=== PATIENT | female | born 1935 | race African-American/Black ===

== ENCOUNTER 2017-08-13 00:33 | Inpatient (IN) | payer MEDICARE, MEDICAID ==
[2017-08-13] VITALS (10 sets, daily range): BP systolic 91–175; BP diastolic 50–111
[~2017-08-13] VITALS: Ht 162.6 cm; Wt 72.1 kg
[~2017-08-13 00:33] MED LIST: ALBU2.5V13 NEB; AMLO5TAB88 PO; ASPI-1158 PO; ASPI-1159 PO; BUDE6HFA INH; COR12 PO; COR3 PO; FURO40TA5 PO; Isosorb Dinit/Hydralazine Hcl PO; NITR0.4T49 SL; NITR1OIN TD; P20 PO; Potassium Chloride PO; TIOT18CA3 INH
[2017-08-13] MEDS ORDERED: METHYLPREDNISOLONE SOD SUCC 125 MG/2 ML VIAL IV STA (00:48)
[2017-08-13] MEDS ORDERED: ALBUTEROL (0.083%) 2.5MG/3ML NEB HHN STA (00:48)
[2017-08-13] MEDS ORDERED: IPRATROPIUM BROMIDE (0.02%) 0.5MG/2.5ML NEB HHN STA (00:48)
[2017-08-13] MEDS ORDERED: MAGNESIUM 2 G PREMIX 50 ML IV ONE (01:00)
[2017-08-13] MEDS ORDERED: ASPIRIN 81MG TABLET PO ONE (01:00)
[2017-08-13] MEDS ORDERED: NITROGLYCERIN OINT 1GM/INCH UDPKT TD ONE (01:00)
[2017-08-13 01:15] LABS: BG BASE EXCESS 2.3 mmol/L (-2.0-2.0); BG BILEVEL POS AIRWAY PRESSURE 15/5; BG CARBOXYHEMOGLOBIN 0.3 % (0.5-1.5); BG DEOXYHEMOGLOBIN 2.3 % (0.0-5.0); BG FRACTION INSPIRED OXYGEN 28; BG HCO3 ACT 24.9 mmol/L (22.0-26.0); BG METHEMOGLOBIN 0.2 % (0.0-1.5); BG OXYGEN SATURATION 97.7 % (92.0-98.5); BG OXYHEMOGLOBIN 97.2 % (94.0-97.0); BG PH 7.509 (7.350-7.450); BG PO2 100.8 mmHg (75.0-100.0); BG SAMPLE SITE RIGHT BRACHIAL; BG TOTAL HEMOGLOBIN 11.6 g/dL (12.0-18.0); BG VENT MODE MASK - BIPAP; BG VENT RATE 14 set
[2017-08-13 01:23] LABS: BASOPHILS % 0.4 % (0.0-2.0); EOSINOPHILS % 1.3 % (0.0-5.0); HEMATOCRIT. 31.7 % (36.0-48.0); HEMOGLOBIN. 10.6 g/dL (12.0-16.0); LYMPHOCYTES % 8.7 % (20.0-50.0); MEAN CORPUSCULAR HEMOGLOBIN 31.4 pg (28.0-32.0); MEAN CORPUSCULAR VOLUME 93.9 fL (81.0-99.0); MEAN PLATELET VOLUME 10.1 fl (7.4-10.4); NEUTROPHILS % 82.6 % (40.0-76.0); PLATELET 128 x1000/uL (130-400); RED BLOOD CELL COUNT 3.37 mill/uL (4.2-5.4); RED CELL DISTRIBUTION WIDTH 17.5 % (11.6-14.6)
[2017-08-13 01:32] LABS: D-DIMER 0.76 mg/L FEU (<0.50); INR 1.1; PARTIAL THROMBOPLASTIN TIME 28.9 sec (23.4-31.0); PROTHROMBIN TIME 11.7 sec (9.4-11.6)
[2017-08-13 01:39] LABS: CARBON DIOXIDE 29 mEq/L (21-32); CHLORIDE 95 mEq/L (98-107); ETHANOL BLOOD < 10 mg/dL; TROPONIN I 0.04 ng/mL (0.00-0.04)
[2017-08-13] MEDS ORDERED: SODIUM CHLORIDE 0.9% 1,000 ML IV ONE (02:11)
[2017-08-13] MEDS ORDERED: LEVOFLOXACIN 750MG PREMIX 150 ML IV ONE (02:30)
[2017-08-13] MEDS ORDERED: CLONIDINE 0.1MG TABLET PO PRN (05:30)
[2017-08-13] MEDS ORDERED: IPRATROPIUM/ALBUTEROL 0.5-3(2.5)MG/3ML NEB HHN PRN (05:30)
[2017-08-13] MEDS ORDERED: ONDANSETRON HCL 4MG/2ML VIAL IV PRN (05:30)
[2017-08-13] MEDS: IPRATROPIUM/ALBUTEROL 0.5-3(2.5)MG/3ML NEB HHN SCH ×4 (08:29→20:57)
[2017-08-13] MEDS: ENOXAPARIN 40MG/0.4ML SYR SUBCUT SCH (08:38)
[2017-08-13] MEDS: CARVEDILOL 12.5MG TABLET PO SCH ×2 (08:38→21:15)
[2017-08-13] MEDS: METHYLPREDNISOLONE SOD SUCC 125 MG/2 ML VIAL IV SCH ×3 (08:38→23:57)
[2017-08-13] MEDS: ASPIRIN 81MG TABLET PO SCH (08:39)
[2017-08-13] MEDS: AMLODIPINE 5MG TABLET PO SCH (08:39)
[2017-08-13] MEDS: POTASSIUM CHLORIDE 20MEQ TABLET SR PO SCH (08:39)
[2017-08-13] MEDS: FUROSEMIDE 40MG/4ML VIAL IVP SCH (08:40)
[2017-08-13] MEDS: ISOSORB DINIT/HYDRALAZINE HCL 20/37.5MG TABLET PO SCH ×2 (08:40→21:15)
[2017-08-13] MEDS ORDERED: LEVOFLOXACIN 500MG PREMIX 100 ML IV SCH (15:00)
[2017-08-13] MEDS ORDERED: SODIUM CHLORIDE 0.9% 10ML VIAL ONE (15:09)
[2017-08-13] MEDS ORDERED: IOHEXOL-350 100 ML BOTTLE ONE (15:09)
[2017-08-13 15:52] LABS: HEMATOCRIT. 31.5 % (36.0-48.0); HEMOGLOBIN. 10.6 g/dL (12.0-16.0); MEAN CORPUSCULAR HEMOGLOBIN 31.6 pg (28.0-32.0); MEAN CORPUSCULAR VOLUME 94.1 fL (81.0-99.0); MEAN PLATELET VOLUME 10.9 fl (7.4-10.4); PLATELET 137 x1000/uL (130-400); RED BLOOD CELL COUNT 3.35 mill/uL (4.2-5.4); RED CELL DISTRIBUTION WIDTH 17.1 % (11.6-14.6)
[2017-08-13] MEDS ORDERED: LACTULOSE 20G/30ML UDC PO NR (17:00)
[2017-08-14] VITALS (9 sets, daily range): BP systolic 133–200; BP diastolic 70–105
[2017-08-14] MEDS: LEVOFLOXACIN 250MG PREMIX 50 ML IV SCH (04:16)
[2017-08-14 06:38] LABS: BASOPHILS % 0.1 % (0.0-2.0); HEMATOCRIT. 32.7 % (36.0-48.0); LYMPHOCYTES % 8.7 % (20.0-50.0); MEAN CORPUSCULAR HEMOGLOBIN 31.5 pg (28.0-32.0); MEAN CORPUSCULAR VOLUME 93.5 fL (81.0-99.0); MEAN PLATELET VOLUME 11.3 fl (7.4-10.4); MONOCYTES % 4.6 % (2.0-8.0); NEUTROPHILS % 86.6 % (40.0-76.0); PLATELET 152 x1000/uL (130-400); RED CELL DISTRIBUTION WIDTH 17.7 % (11.6-14.6)
[2017-08-14] MEDS: OMEPRAZOLE 20MG CAPSULE EXTENDED RELEASE PO SCH (06:55)
[2017-08-14 07:13] LABS: TROPONIN I 0.04 ng/mL (0.00-0.04)
[2017-08-14] MEDS: IPRATROPIUM/ALBUTEROL 0.5-3(2.5)MG/3ML NEB HHN SCH ×4 (08:15→22:20)
[2017-08-14] MEDS: ASPIRIN 81MG TABLET PO SCH (09:22)
[2017-08-14] MEDS: AMLODIPINE 5MG TABLET PO SCH (09:22)
[2017-08-14] MEDS: ISOSORB DINIT/HYDRALAZINE HCL 20/37.5MG TABLET PO SCH ×2 (09:22→20:20)
[2017-08-14] MEDS: DOCUSATE SODIUM 100MG CAPSULE PO SCH (09:22)
[2017-08-14] MEDS: POTASSIUM CHLORIDE 20MEQ TABLET SR PO SCH (09:22)
[2017-08-14] MEDS: ENOXAPARIN 40MG/0.4ML SYR SUBCUT SCH (09:23)
[2017-08-14] MEDS: FUROSEMIDE 40MG/4ML VIAL IVP SCH (09:23)
[2017-08-14] MEDS: CARVEDILOL 12.5MG TABLET PO SCH (09:23)
[2017-08-14] MEDS: METHYLPREDNISOLONE SOD SUCC 125 MG/2 ML VIAL IV SCH (09:23)
[2017-08-14 10:23] LABS: PLATELET ESTIMATE NORMAL
[2017-08-14] MEDS: LORAZEPAM 2MG/ML CPJ IV PRN ×2 (11:33→20:24)
[2017-08-14] MEDS ORDERED: CLONIDINE 0.2MG TABLET PO PRN (12:45)
[2017-08-14] MEDS: ACETAMINOPHEN 650MG/20.3ML UDC PO PRN (18:58)
[2017-08-14] MEDS: METHYLPREDNISOLONE SOD SUCC 40 MG/ML VIAL IV SCH (20:16)
[2017-08-15] VITALS (10 sets, daily range): BP systolic 140–163; BP diastolic 60–99
[2017-08-15] MEDS: CLONIDINE 0.1MG TABLET PO PRN ×2 (03:23→19:01)
[2017-08-15] MEDS: LEVOFLOXACIN 250MG PREMIX 50 ML IV SCH (03:41)
[2017-08-15 07:43] LABS: HEMOGLOBIN. 11.1 g/dL (12.0-16.0); MEAN CORPUSCULAR HEMOGLOBIN 31.6 pg (28.0-32.0); MEAN CORPUSCULAR VOLUME 93.9 fL (81.0-99.0); MEAN PLATELET VOLUME 11.1 fl (7.4-10.4); PLATELET 166 x1000/uL (130-400); RED BLOOD CELL COUNT 3.52 mill/uL (4.2-5.4); RED CELL DISTRIBUTION WIDTH 17.1 % (11.6-14.6)
[2017-08-15 07:50] LABS: TROPONIN I 0.1 ng/mL (0.00-0.04)
[2017-08-15] MEDS: ASPIRIN 81MG TABLET PO SCH (08:30)
[2017-08-15] MEDS: AMLODIPINE 5MG TABLET PO SCH ×2 (08:38→22:16)
[2017-08-15] MEDS: ISOSORB DINIT/HYDRALAZINE HCL 20/37.5MG TABLET PO SCH ×2 (08:38→22:15)
[2017-08-15] MEDS: METHYLPREDNISOLONE SOD SUCC 40 MG/ML VIAL IV SCH ×2 (08:38→22:16)
[2017-08-15] MEDS: OMEPRAZOLE 20MG CAPSULE EXTENDED RELEASE PO SCH (08:38)
[2017-08-15] MEDS: DOCUSATE SODIUM 100MG CAPSULE PO SCH (08:38)
[2017-08-15] MEDS: ENOXAPARIN 30MG/0.3ML SYR SUBCUT SCH (08:38)
[2017-08-15] MEDS: FUROSEMIDE 40MG/4ML VIAL IVP SCH (08:38)
[2017-08-15] MEDS: IPRATROPIUM/ALBUTEROL 0.5-3(2.5)MG/3ML NEB HHN SCH ×5 (08:49→20:38)
[2017-08-15] MEDS: POTASSIUM CHLORIDE 20MEQ TABLET SR PO SCH (08:50)
[2017-08-15] MEDS: LORAZEPAM 2MG/ML CPJ IV PRN (12:04)
[2017-08-15] MEDS ORDERED: IPRATROPIUM/ALBUTEROL 0.5-3(2.5)MG/3ML NEB HHN PRN (13:30)
[2017-08-15] MEDS: TRAMADOL 50MG TABLET PO PRN (16:49)
[2017-08-15 17:00] LABS: PLATELET ESTIMATE NORMAL
[2017-08-16] VITALS (13 sets, daily range): BP systolic 123–162; BP diastolic 66–95
[2017-08-16] MEDS: CLONIDINE 0.1MG TABLET PO PRN (03:13)
[2017-08-16] MEDS: LORAZEPAM 2MG/ML CPJ IV PRN ×2 (03:16→11:34)
[2017-08-16] MEDS: LEVOFLOXACIN 250MG PREMIX 50 ML IV SCH (03:16)
[2017-08-16 05:56] LABS: HEMATOCRIT. 31.9 % (36.0-48.0); HEMOGLOBIN. 10.7 g/dL (12.0-16.0); MEAN CORPUSCULAR HEMOGLOBIN 31.3 pg (28.0-32.0); MEAN CORPUSCULAR VOLUME 93.6 fL (81.0-99.0); MEAN PLATELET VOLUME 10.8 fl (7.4-10.4); PLATELET 161 x1000/uL (130-400); RED BLOOD CELL COUNT 3.41 mill/uL (4.2-5.4); RED CELL DISTRIBUTION WIDTH 17.3 % (11.6-14.6)
[2017-08-16] MEDS: TRAMADOL 50MG TABLET PO PRN (06:23)
[2017-08-16] MEDS: IPRATROPIUM/ALBUTEROL 0.5-3(2.5)MG/3ML NEB HHN SCH ×4 (07:42→20:52)
[2017-08-16] MEDS: METHYLPREDNISOLONE SOD SUCC 40 MG/ML VIAL IV SCH ×2 (08:49→20:32)
[2017-08-16] MEDS: DOCUSATE SODIUM 100MG CAPSULE PO SCH (08:49)
[2017-08-16] MEDS: ASPIRIN 81MG TABLET PO SCH (08:49)
[2017-08-16] MEDS: FUROSEMIDE 40MG/4ML VIAL IVP SCH (08:50)
[2017-08-16] MEDS: POTASSIUM CHLORIDE 20MEQ TABLET SR PO SCH (08:50)
[2017-08-16] MEDS: FAMOTIDINE 20MG TABLET PO SCH (08:50)
[2017-08-16] MEDS: AMLODIPINE 5MG TABLET PO SCH ×2 (08:51→20:32)
[2017-08-16] MEDS: ISOSORB DINIT/HYDRALAZINE HCL 20/37.5MG TABLET PO SCH ×2 (08:51→20:33)
[2017-08-16] MEDS: ACETAMINOPHEN 650MG/20.3ML UDC PO PRN (08:52)
[2017-08-16] MEDS: ENOXAPARIN 30MG/0.3ML SYR SUBCUT SCH (08:52)
[2017-08-16 13:36] LABS: PLATELET ESTIMATE NORMAL
[2017-08-17] VITALS (9 sets, daily range): BP systolic 123–158; BP diastolic 64–90
[2017-08-17 06:13] LABS: BASOPHILS % 0.1 % (0.0-2.0); HEMATOCRIT. 35.2 % (36.0-48.0); HEMOGLOBIN. 11.8 g/dL (12.0-16.0); LYMPHOCYTES % 7.7 % (20.0-50.0); MEAN CORPUSCULAR HEMOGLOBIN 31.4 pg (28.0-32.0); MEAN CORPUSCULAR VOLUME 93.8 fL (81.0-99.0); MEAN PLATELET VOLUME 11.3 fl (7.4-10.4); MONOCYTES % 7.3 % (2.0-8.0); NEUTROPHILS % 84.9 % (40.0-76.0); PLATELET 172 x1000/uL (130-400); RED BLOOD CELL COUNT 3.75 mill/uL (4.2-5.4); RED CELL DISTRIBUTION WIDTH 17.4 % (11.6-14.6)
[2017-08-17] MEDS: IPRATROPIUM/ALBUTEROL 0.5-3(2.5)MG/3ML NEB HHN SCH ×3 (07:59→16:04)
[2017-08-17] MEDS: DOCUSATE SODIUM 100MG CAPSULE PO SCH (08:45)
[2017-08-17] MEDS: ACETAMINOPHEN 650MG/20.3ML UDC PO PRN (08:45)
[2017-08-17] MEDS: FUROSEMIDE 40MG/4ML VIAL IVP SCH (08:45)
[2017-08-17] MEDS: METHYLPREDNISOLONE SOD SUCC 40 MG/ML VIAL IV SCH (08:45)
[2017-08-17] MEDS: AMLODIPINE 5MG TABLET PO SCH (08:46)
[2017-08-17] MEDS: ISOSORB DINIT/HYDRALAZINE HCL 20/37.5MG TABLET PO SCH (08:46)
[2017-08-17] MEDS: FAMOTIDINE 20MG TABLET PO SCH (08:46)
[2017-08-17] MEDS: ASPIRIN 81MG TABLET PO SCH (08:46)
[2017-08-17] MEDS: ENOXAPARIN 30MG/0.3ML SYR SUBCUT SCH (08:47)
[2017-08-17] MEDS: POTASSIUM CHLORIDE 20MEQ TABLET SR PO SCH (08:47)
[2017-08-17] MEDS ORDERED: LEVOFLOXACIN 250MG TABLET PO SCH (11:00)
[2017-08-17] MEDS: TRAMADOL 50MG TABLET PO PRN (11:31)
== END 2017-08-17 18:13 | DRG 291 ==
LOC: ER 00:49 → 5EST 01:12
PROVIDERS: ADMIT Family Medicine Adult Medicine; ATTEND Family Medicine Adult Medicine
PROC: 5A09357 Assistance with Respiratory Ventilation, Less than 24 Consecutive Hours, Continuous Positive Airway Pressure (ICD-10-PCS; principal; 2017-08-13)
DX: I11.0 Hypertensive heart disease with heart failure (principal); J96.01 Acute respiratory failure with hypoxia; I27.2 Other secondary pulmonary hypertension; E44.1 Mild protein-calorie malnutrition; E87.1 Hypo-osmolality and hyponatremia; J44.1 Chronic obstructive pulmonary disease with (acute) exacerbation; I50.23 Acute on chronic systolic (congestive) heart failure; I42.0 Dilated cardiomyopathy; D64.9 Anemia, unspecified; E78.00 Pure hypercholesterolemia, unspecified; E78.5 Hyperlipidemia, unspecified; F41.9 Anxiety disorder, unspecified; I25.10 Atherosclerotic heart disease of native coronary artery without angina pectoris; R91.1 Solitary pulmonary nodule; B19.20 Unspecified viral hepatitis C without hepatic coma; I34.0 Nonrheumatic mitral (valve) insufficiency; Z99.81 Dependence on supplemental oxygen; Z79.82 Long term (current) use of aspirin; Z79.899 Other long term (current) drug therapy; Z90.49 Acquired absence of other specified parts of digestive tract; Z68.27 Body mass index [BMI] 27.0-27.9, adult
CPT/HCPCS: 36415; 36600; 71010; 71275; 76705; 80048; 80053; 80076; 82375; 82805; 83605; 83690; 83735; 83880; 84484; 85025; 85379; 85610; 85730; 87040; 93005; 93306; 93970; 94640; 94660; 96365; 96375; 97110; 97116; 97162; 97166; 97530; 99285; A4216; G0482; J1650; J1940; J1956; J2060; J2920; J2930; J3475; J7030; J7050; J7611; J7620; Q9967